=== PATIENT | female | born 1985 | race Caucasian/White ===

== ENCOUNTER 2018-04-24 11:48 | Emergency (ER) | payer BC ==
[2018-04-24] MEDS ORDERED: SODIUM CHLORIDE 0.9% (FLUSH) 10 ML SYG IV PRN (11:57)
[2018-04-24 11:59] VITALS: TEMP 98.5
[2018-04-24] MEDS ORDERED: ASPIRIN TABLET 325 MG TAB ONE (12:00)
[2018-04-24] MEDS ORDERED: ASPIRIN TABLET 325 MG TAB PO ONE (12:04)
--- NOTE | 2018-04-24 12:15 | RAD ---
EXAM DESCRIPTION: Chest,1 View CLINICAL HISTORY: 32 years Female, CHEST PAIN X 2 DAYS COMPARISON: None. TECHNIQUE: Single frontal view of the chest. IMPRESSION: Cardiac silhouette is normal in size. No consolidation present. No pleural effusion or pneumothorax. Osseous structures are intact. Electronically signed by: Tang Martines MD 04/24/2018 12:13 PM [facility]
--- NOTE | 2018-04-24 14:55 | ED.PDOC ---
History of Present Illness - General Chief Complaint: Chest Pain/[place] Stated Complaint: chest pain Time Seen by Provider: 04/24/18 11:56 Source: patient Exam Limitations: no limitations - History of Present Illness Initial Comments: 2 D CP. L SIDED. CONSTANT BUT WORSE WHEN INHALES SEEP BREATH; IT "CATCHES". NO CARDIAC HX. Timing/Duration: constant Severity/Quality: moderate, sharp Chest Pain Radiation: no radiation Activities at Onset: none Prior Chest Pain/Cardiac Workup: no prior chest pain, no prior cardiac workup Improving Factors: nothing Worsening Factors: other - DEEP BREATH Nitro Today/Relief: no nitro taken today Aspirin Treatment Today: no aspirin today Associated Symptoms: denies symptoms Allergies/Adverse Reactions: Allergies NO KNOWN ALLERGY Allergy (Verified 04/24/18 11:59) Home Medications: Ambulatory Orders NK 04/24/18 Review of Systems - Review of Systems Constitutional: Denies: chills, diaphoresis EENTM: States: no symptoms reported Respiratory: Denies: cough, short of breath Cardiology: States: chest pain. Denies: palpitations Gastrointestinal/Abdominal: States: no symptoms reported Genitourinary: States: no symptoms reported Musculoskeletal: States: no symptoms reported Skin: States: no symptoms reported Neurological: States: no symptoms reported Endocrine: States: no symptoms reported Hematologic/Lymphatic: States: no symptoms reported All other Systems: Reviewed and Negative Past Medical History (General) - Patient Medical History Hx Seizures: No Hx Asthma: No Hx of COPD: No Hx Cardiac Disorders: No Hx Congestive Heart Failure: No Hx Pacemaker: No Hx Hypertension: No Hx Diabetes: No Hx Cancer: No Hx Hepatitis C: No - Vaccination History Hx Tetanus, Diphtheria Vaccination: Yes Hx Influenza Vaccination: Yes Hx Pneumococcal Vaccination: No Immunizations Up to Date: Yes - Social History Hx Tobacco Use: No Hx Alcohol Use: Yes - social Hx Substance Use: No Hx Substance Use Treatment: No Hx Depression: No - Female History Patient is a Female of Child Bearing Age (10 -59 yrs old): Yes Family Medical History - Family History Mother Hx Family Diabetes: Yes Physical Exam - Physical Exam General Appearance: Alert, No apparent distress Eyes, Ears, Nose, Throat Exam: PERRL/EOMI, normal ENT inspection Neck: non-tender, full range of motion, other - NO BRUIT Respiratory: lungs clear, normal breath sounds, no respiratory distress, no accessory muscle use, other - L SUPERIOANTERIOR CHEST, PAIN REPRODUCIBLE WITH PALPATION. Cardiovascular/Chest: normal peripheral pulses, regular rate, rhythm, no JVD, no murmur Peripheral Pulses: radial,right: 2+, radial,left: 2+ Gastrointestinal/Abdominal: normal bowel sounds, non tender Extremity: normal range of motion, normal inspection, no pedal edema, no calf tenderness Neurologic: no motor/sensory deficits, alert, normal mood/affect Skin Exam: normal color, warm/dry Lymphatic: no adenopathy Progress - Results/Orders Results/Orders: W/U NEG: CBC, CMP, CIE, CXR, EKG, COAGS. 2 D CP THUS ONLY 1 SET OF CARD ENZ NEEDED TO R/O ACS. L UPPER CP REODUCIBLE W/ PALPATION AND WORSE WITH DEEP INSPIRATION, THUS COSTOCHONDRITIS. NSAIDS PRN. Departure - Departure Clinical Impression: Costochondritis, acute, Non-cardiac chest pain Disposition: Discharge to Home or Self Care Condition: Good Departure Forms: ED Discharge - Pt. Copy, Patient Portal Self Enrollment Instructions: DI for Chest Pain, Costochondritis (DC) Diet: resume usual diet Activity: increase activity as tolerated Home Medications: Ambulatory Orders NK 04/24/18 Additional Instructions: Take ibuprofen 800 mg three times per day as needed for the pain.
[2018-04-24 15:02] VITALS: BP 110/75; O2SAT 100
== END 2018-04-24 15:01 | disposition home or self-care (01) ==
LOC: ER 11:48
DX: M94.0 Chondrocostal junction syndrome [Tietze] (principal); R07.89 Other chest pain